=== PATIENT | female | born 1980 ===

== ENCOUNTER 2018-08-16 14:18 | Outpatient (CLI) | payer OTHER | END 2018-08-16 14:19 | disposition home or self-care (01) | LOC: C.LAB 14:18 | DX: I82.409 Acute embolism and thrombosis of unspecified deep veins of unspecified lower extremity (principal) ==

== ENCOUNTER 2018-08-24 15:46 | Outpatient (CLI) | payer OTHER | END 2018-08-24 15:47 | disposition home or self-care (01) | LOC: C.LAB 15:46 ==

== ENCOUNTER 2018-09-21 14:19 | Outpatient (CLI) | payer OTHER | END 2018-09-21 14:20 | disposition home or self-care (01) | LOC: C.LAB 14:19 ==

== ENCOUNTER 2018-10-05 14:25 | Outpatient (CLI) | payer OTHER | END 2018-10-05 14:26 | disposition home or self-care (01) | LOC: C.LAB 14:25 ==